=== PATIENT | female | born 1985 | race Caucasian/White ===

== ENCOUNTER 2017-11-16 13:38 | Emergency (ER) | payer BC, OTHER ==
[~2017-11-16] VITALS: Ht 170.2 cm; Wt 88.9 kg
[2017-11-16 13:45] VITALS: BP 134/91
[2017-11-16] MEDS ORDERED: LEXAPRO20 MG PO (14:20)
[2017-11-16] MEDS ORDERED: DIETHYLPROPION25 MG PO (14:20)
[2017-11-16] MEDS ORDERED: HYDROCODONE-AP1 EAC6 PO (14:58)
== END 2017-11-16 15:04 | disposition home or self-care (01) ==
LOC: ER 13:38
DX: M79.671 Pain in right foot (principal); F41.9 Anxiety disorder, unspecified; W10.9XXA Fall (on) (from) unspecified stairs and steps, initial encounter; Y93.89 Activity, other specified; Y92.89 Other specified places as the place of occurrence of the external cause; Y99.8 Other external cause status